=== PATIENT | female | born 1975 | race Caucasian/White ===

== ENCOUNTER 2024-12-17 01:04 | Day surgery (SDC) | payer BC, SELFPAY ==
[2024-12-07 14:11] VITALS: BMI 30.7
--- OUTSIDE RECORDS SUMMARY | 2024-12-17 01:06 | XMS_ITS | Clinical Summary ---
Author Organization [facility] Address [address] [place] [address] Care Team Providers Care Corner Former Name Role Phone Doris Huerta NP Primary Care Provider Allergies No known active allergies Medications sertraline (ZOLOFT) 100 mg tablet Take 1 tablet (100 mg total) by mouth daily Active clonazePAM (KlonoPIN) 1 mg tablet Take 1 tablet (1 mg total) by mouth 2 (two) times a day Active SUMAtriptan (IMITREX) 50 mg tabletIndicatio ns:Migraine Take 1 tablet (50 mg total) by mouth once May repeat dose once in 2 hours if no relief. Do not exceed 2 doses in 24 hours. Active amLODIPine (NORVASC) 2.5 mg tablet Take 1 tablet (2.5 mg total) by mouth daily Active carBAMazepine ER (CARBATROL) 300 mg 12 hr capsule Take 2 capsules (600 mg total) by mouth 2 (two) times a day Active Active Problems Problem Noted Date Diagnosed Date Alcohol withdrawal syndrome, uncomplicated 07/23 Hypertension 07/23/2023 Seizure disorder 07/23/2023 Migraine without status migrainosus, not intract able 07/23/2023 Medical History Medical History Date Comments Seizure disorder (HCC) 07/23/2023 Hypertension 07/23/2023 Migraine without status migrainosus, not intract able 07/23/2023 Family History Medical History Relation Name Comments Cerebral palsy Father Relation Name Status Comments Father Alive Social History Tobacco Use Types Packs/Day Years Used Date Smoking Tobacco: Former Cigarettes Personal Safety Answer Date Recorded Have you ever been in or are you currently in a harmful physical or emotional relationship or is someone making you feel afraid or unsafe? 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 Gender Identity Not on file Sexual Orientation Not on file Obstetrics History Last Filed Vital Signs Vital Sign Reading Time Taken Comments Blood Pressure 140/74 07/26/2023 11:06 AM CDT Pulse 74 07/26/2023 11:06 AM CDT Temperature 36.6 C (97.9 F) 07/26/2023 7:36 AM CDT Respiratory Rate 18 07/26/2023 7:36 AM CDT Oxygen Saturation 100% 07/26/2023 7:36 AM CDT Inhaled Oxygen Concentration - - Weight 73 kg (161 lb) 07/23/2023 12:04 PM CDT Height 167.6 cm (5' 6 ) 07/23/2023 12:04 PM CDT Body Mass Index 25.99 07/23/2023 12:04 PM CDT Plan of Treatment Health Maintenance Due Date Last Done Comments Cervical Cancer Screening 1973 Colon Cancer Screening-Colonoscopy 1973 Depression Screening 1973 Hepatitis C Screening 1973 Hepatitis B Screening 1991 Regular Well Visit/Exam 18-64 1991 Breast Cancer Screening-Mammogram 09/27/2015 09/27/2014, 09/27/2014 Zoster Vaccine (1 of 2) 2023 Influenza Vaccine (#1) 2024 DTaP/Tdap/Td Vaccine (2 - Td or Tdap) 12/21/2028 12/21/2018 Pneumococcal vaccine <65 Aged Out No longer eligible based on patient's age to complete this topic Insurance [address], [address] CHOICE [employer]OS [address], [address] [address] Advance Directives For more information, please contact: [phone] * Full Code (Latest Code Status on File) Date Activated Date Inactivated Comments 07/23/2023 11:58 AM 07/26/2023 5:10 PM Care Teams Corner Former Relationship Specialty Start Date End Date Doris Huerta NP [address] [place] [id number] PCP - General Nurse Practitioner 07/21/23
--- OUTSIDE RECORDS SUMMARY | 2024-12-17 01:06 | XMS_ITS | Referral Summary ---
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
--- OUTSIDE RECORDS SUMMARY | 2024-12-17 01:06 | XMS_ITS | Encounter Summary ---
Author Organization [facility] Address [facility] [place] [address] Care Team Providers Care Engineering Director Name Role Phone None, Provider Primary Care Provider Unavaila ble Encounter Details Date Type Department Care Team (Late st Contact Info) Description 08/08/2017 Abstract [facility] CONVERSION [address] [place], [place] [id number] , Generic Conversion, Social History Tobacco Use Types Packs/Day Years Used Date Smoking Tobacco: Never Assessed Comments Unknown Sex and Gender Information Value Date Recorded Sex Assigned at Not on file Legal Sex Female 1:58 PM CDT Gender Identity Not on file Sexual Orientation Not on file documented as of this encounter Plan of Treatment Not on file documented as of this encounter Visit Diagnoses Not on filedocumented in this encounter Care Teams Engineering Director Relationship Specialty Start Date End Date None, ProviderMD PCP - General 04/22/20 documented as of this encounter
--- OUTSIDE RECORDS SUMMARY | 2024-12-17 01:06 | XMS_ITS | Clinical Summary ---
Author Organization [facility] Address [address] [place] [id number] Care Team Providers Care Lease Administrator Name Role Phone Provider, None Primary Care Provider Unavailabl e Allergies No known active allergies Medications ibuprofen (MOTRIN) 800 MG TabletIndication s:Back strain, initial encounter Take 1 Tablet by mouth every 8 hours. 30 Tablet 3 04/21/2023 Active Active Problems No known active problems Social History Tobacco Use Types Packs/Day Years Used Date Smoking Tobacco: Never Smokeless Tobacco: Never Tobacco Cessation:Counseling Given: Not Answered Alcohol Use Standard Drinks/Week Comments Never 0 (1 standard drink = 0.6 oz pur e alcohol) Comments No Sex and Gender Information Value Date Recorded Sex Assigned at Not on file Legal Sex Female 2:13 PM CDT Gender Identity Not on file Sexual Orientation Not on file Last Filed Vital Signs Vital Sign Reading Time Taken Comments Blood Pressure 146/86 04/21/2023 2:23 PM CDT Pulse 85 04/21/2023 2:23 PM CDT Temperature 37 C (98.6 F) 04/21/2023 2:23 PM CDT Respiratory Rate 18 04/21/2023 2:23 PM CDT Oxygen Saturation - - Inhaled Oxygen Concentration - - Weight 74.8 kg (165 lb) 04/21/2023 2:23 PM CDT Height 168.9 cm (5' 6.5 ) 04/21/2023 2:23 PM CDT Body Mass Index 26.23 04/21/2023 2:23 PM CDT Plan of Treatment Health Maintenance Due Date Last Done Comments Hepatitis C Virus (HCV) Screening 1973 Hepatitis B Immunization (1 of 3 - 19+ 3-dose series) 1992 Pap Smear 1994 Cervical Cancer Screening (CCS) 2003 HPV/Cotest 2003 Mammogram 09/27/2015 09/27/2014 Colonoscopy 2018 Colorectal Cancer Screening 2018 Cologuard 2023 Immunochemical Fecal Occult Blood 2023 Pneumococcal Immunization (5 0+ years) (1 of 1 - PCV) 2023 Zoster Immunization (1 of 2) 2023 Influenza Immunization (#1) 2024 SARS-COV-2 Immunization (1 - 2023- season) 2024 Respiratory Syncytial Virus (RSV) Immunization (Adult) (1 - 1-dose 75+ series) 2048 Discussion re Starting/Frequ ency of Mammograms Discontinued 09/27/2014 DTaP/Tdap/Td Immunization Discontinued 12/21/2018 TdaP Immunization Completed 12/21/2018 Meningococcal Immunization (ACWY) Aged Out No longer eligible based on patient's age to complete this topic Pneumococcal Immunization Combined Aged Out No longer eligible based on patient's age to complete this topic Rotavirus Immunization Aged Out No lo nger eligible based on patient's age to complete this topic Insurance [facility] Care Teams Lease Administrator Relationship Specialty Start Date End Date Provider, None MA PCP - General 04/21/23
--- OUTSIDE RECORDS SUMMARY | 2024-12-17 01:06 | XMS_ITS | Clinical Summary ---
Author Organization [facility] Address [address] [place] [address] Care Team Providers Care Paring Machine Operator Name Role Phone None, Provider MD Primary Care Provider Unavaila ble Allergies Active Allergy Reactions Criticality Noted Date Comments Penicillins Unknown 04/22/2020 Medications carBAMazepine 200 MG tablet Take 400 mg by mouth 3 (three) times daily. 08/16/2015 Active clonazePAM 1 MG tablet Take 1 mg by mouth daily. 03/23/2020 Active sertraline 100 MG tablet Take 100 mg by mouth daily. 08/16/2015 Active traZODone 50 MG tablet Take 150 mg by mouth nightly as needed. 08/16/2015 Active HYDROcodone-addie taminophen 5-325 MG tabletIndicatio ns:Acute Pain < 3 Day Supply Take 1 tablet by mouth every 6 (six) hours as needed for Pain. Indications: Acute Pain < 3 Day Supply 6 tablet 04/22/2020 Active Immunizations Name Administration Dates Next Due Tdap (Adacel) 04/22/2020(Deferred: Patient/family declined - pt stated that she had a tetanus shot last year.) Family History Medical History Relation Comments Breast Cancer Neg Hx Social History Tobacco Use Types Packs/Day Years Used Date Smoking Tobacco: Some Days Smokeless Tobacco: Never Alcohol Use Standard Drinks/Week Comments Yes 0 (1 standard drink = 0.6 oz pur e alcohol) Comments No Sex and Gender Information Value Date Recorded Sex Assigned at Not on file Legal Sex Female 1:58 PM CDT Gender Identity Not on file Sexual Orientation Not on file Last Filed Vital Signs Vital Sign Reading Time Taken Comments Blood Pressure 118/67 04/22/2020 4:15 AM CDT Pulse 88 04/22/2020 3:45 AM CDT Temperature 37.1 C (98.7 F) 04/22/2020 1:15 AM CDT Respiratory Rate 21 04/22/2020 3:15 AM CDT Oxygen Saturation 97% 04/22/2020 3:45 AM CDT Inhaled Oxygen Concentration - - Weight 91.4 kg (201 lb 6.4 oz) 04/22/2020 1:15 A M CDT Height 167.6 cm (5' 6 ) 04/22/2020 1:15 AM CDT Body Mass Index 32.51 04/22/2020 1:15 AM CDT Plan of Treatment Health Maintenance Due Date Last Done Comments Colorectal Cancer Screening Colonoscopy (10 Years) 1973 Annual Physical 1976 Pneumococcal Vaccine: Pediatrics (0 to 5 Years) and At-Risk Patients (6 to 64 Years) (1 of 2 - PCV) 1979 Hepatitis C 1991 DTaP, Tdap and Td Vaccines ( 1 - Tdap) 1992 Hepatitis B Vaccines (1 of 3 - 19+ 3-dose series) 1992 Zoster Vaccines (1 of 2) 2023 COVID-19 Vaccine (1 - 2023-2 5 season) 2024 Influenza Adult (#1) 2024 Mammogram Screening 06/23/2026 06/23/2024, 09/27/2014 Meningococcal B Vaccine Aged Out No l onger eligible based on patient's age to complete this topic Meningococcal Vaccine Aged Out No daniel kim eligible based on patient's age to complete this topic RSV Immunizations Under 20 Months Aged Out No longer eligible b ased on patient's age to complete this topic Procedures Procedure Name Priority Date/Time Associated Diagnosis Comments MG SCREENING W MARIANO OC DIGI Routine 06/23/2024 11:18 AM CDT Encounter for screening mammogram for malignant neoplasm of breast from Last 3 Months or Most Recently Relevant to Health Maintenance Results * MG SCREENING W MARIANO OC DIGI (06/23/2024 11:18 AM CDT) Anatomical Region Laterality Modality Breast Bilateral Mammography 07/12/2024 5:02 PM CDT Impressions 07/12/2024 5:10 PM CDT ===== IMPRESSION: ===== 1. Stable mammographic appearance with no new findings to suggest malignancy in either breast. Assessment: ACR BI-RADS 1 - NEGATIVE Recommendation: 1:Routine Screening Bilateral Comments: Ordered By: DORIS HARMON Interpreted By: Kalani Singh, 07/12/2024 5:02 PM Narrative 07/12/2024 5:10 PM CDT [facility] [address] [place] [address] EXAMINATION: Digital bilateral screening mammogram with 3-D tomosynthesis EXAM DATE/TIME: 06/23/2024 10:53 AM REASON FOR EXAM: Screening COMPARISON: 09/27/2014 Technique: Digital screening mammography of both breasts was performed in addition to 3-D Tomosynthesis technique. This study was read with the assistance of a computer-aided detection system. Tissue density: There are scattered areas of fibroglandular density. Findings: There is no new focal asymmetry, dominant mass lesion, area of skin thickening, or cluster of suspicious appearing calcifications in either breast to suggest malignancy. Doris Harmon VICE PRESIDENT RESEARCH MAMMO Final Resul t from Last 3 Months or Most Recently Relevant to Health Maintenance Insurance [address] [place] [id number] Care Teams Paring Machine Operator Relationship Specialty Start Date End Date None, Provider, PCP - General 04/22/20
--- OUTSIDE RECORDS SUMMARY | 2024-12-17 01:06 | XMS_ITS | Clinical Summary ---
Author Organization [facility] Address [address] [facility] [place] [address] Care Team Providers Care Process Chemist Name Role Phone Jerome Simmons MD Primary Care Provider [phone] Allergies No known active allergies Medications OTHER OTC progesterone lotion twice a month Active sertraline (ZOLOFT) 100 mg tablet Take 1 Tablet (100 mg) by mouth daily. 30 Tablet 11 5 Active carBAMazepine (TEGRETOL) 200 mg tablet Take 2 Tablet (400 mg) by mouth 3 times daily. 180 Tablet 11 5 Active traZODone (DESYREL) 50 mg tablet Take 3 Tablet (150 mg) by mouth daily at bedtime. 90 Tablet 11 5 Active clonazePAM (KLONOPIN) 1 mg tablet TAKE ONE TABLET BY MOUTH TWO TIMES A DAY NEEDED 60 Tablet 0 6 Active Active Problems Problem Noted Date Diagnosed Date Seizure disorder 08/30/2014 Depression 08/30/2014 Obesity (BMI 30.0-34.9) 08/30/2014 History of hysterectomy 08/30/2014 Anxiety 08/30/2014 Family History Medical History Relation Name Comments Diabetes Brother Diabetes Daughter 1 Healthy Daughter 2 Depression Mother Heart Disease Paternal Grandfather Alzheimer's Disease Paternal Grandmother Heart Disease Paternal Uncle Relation Name Status Comments Brother Daughter 1 Daughter 2 Mother Paternal Grandfather Paternal Grandmother Paternal Uncle Social History Tobacco Use Types Packs/Day Years Used Date Smoking Tobacco: Former Cigarettes Q uit: 10/01/2013 Alcohol Use Standard Drinks/Week Comments Yes 0 (1 standard drink = 0.6 oz pur e alcohol) social Comments No Sex and Gender Information Value Date Recorded Sex Assigned at Not on file Legal Sex Female 5:27 PM A&P TECHNICIAN Gender Identity Not on file Sexual Orientation Not on file Occupation Industry Job Start Date Job End Date Not on file Not on file Not on file Not on file Last Filed Vital Signs Vital Sign Reading Time Taken Comments Blood Pressure 108/74 08/16/2015 8:19 AM A&P TECHNICIAN Pulse 81 08/16/2015 8:19 AM A&P TECHNICIAN Temperature - - Respiratory Rate - - Oxygen Saturation 96% 08/16/2015 8:19 AM A&P TECHNICIAN Inhaled Oxygen Concentration - - Weight 89.8 kg (198 lb) 08/16/2015 8:19 AM A&P TECHNICIAN Height 170.2 cm (5' 7 ) 08/16/2015 8:19 AM A&P TECHNICIAN Body Mass Index 31.01 08/16/2015 8:19 AM A&P TECHNICIAN Plan of Treatment Health Maintenance Due Date Last Done Comments DTAP/TDAP/TD VACCINES (1 - Tdap) 1992 HEPATITIS B VACCINES (1 of 3 - 19+ 3-dose series) 1992 BREAST CANCER SCREENING 09/27/2015 09/27/2014 CERVICAL CANCER SCREENING 10/13/20152012 (Previously completed) COLORECTAL SCREENING 2018 Colorectal Cancer Screening 2018 FIT-DNA Q 3 years 2018 FIT/FOBT Q 1 year 2018 Flex Sig/CT Colonography Q 5 years 2018 ZOSTER VACCINE (1 of 2) 2023 INFLUENZA VACCINE (#1) 2024 Procedures Procedure Name Priority Date/Time Associated Diagnosis Comments MAMMO SCREEN BILAT W OR WO CAD Routine 09/27/2014 12:00 PM A&P TECHNICIAN Screening for breast cancer from Last 3 Months or Most Recently Relevant to Health Maintenance Results * MAMMO DIGITAL SCREEN BILAT (09/27/2014 12:00 PM A&P TECHNICIAN) Anatomical Region Laterality Modality Breast Bilateral Mammography Narrative 09/27/2014 4:06 PM A&P TECHNICIAN Bilateral digital screening mammogram with computer assisted diagnosis History: Annual screening exam. Findings: A bilateral screening mammogram was performed. This is the patients' baseline study. The breast parenchyma is heterogeneously dense which can obscure small masses. No masses, suspicious calcifications, or areas of asymmetry or distortion are identified. CAD was utilized. Impression: Negative screening mammogram. Recommendation: Routine annual follow-up Overall Assessment: Birads Category 1: Negative Procedure Note Michelle Brooke MD - 09/27/2014 Bilateral digital screening mammogram with computer assisted diagnosis History: Annual screening exam. Findings: A bilateral screening mammogram was performed. This is thepatients' baseline study. The breast parenchyma is heterogeneously densewhich can obscure small masses. No masses, suspicious calcifications, orareas of asymmetry or distortion are identified. CAD was utilized. Impression: Negative screening mammogram. Recommendation: Routine annual follow-up Overall Assessment: Birads Category 1: Negative Jerome Simmons MD MAMMO ORDERABLES Final Result from Last 3 Months or Most Recently Relevant to Health Maintenance Care Teams Process Chemist Relationship Specialty Start Date End Date Jerome Simmons MD [address] [place] [id number] PCP - General Internal Medicine 08/17/14
[2024-12-17 07:17] VITALS: BP 125/76; PULSE 62; RESP 18; TEMP 36.6; O2SAT 98
[2024-12-17 07:19] VITALS: BMI 31.3
[2024-12-17] MEDS: LACTATED RINGERS 1,000 ML 150 ML IV CONT (07:28)
--- NOTE | 2024-12-17 07:59 | PM.HPGS ---
History of Present Illness History of Present Illness Consent: Risks, benefits, and alternatives have been discussed and questions answered. Patient agrees to proceed with procedure. Chief complaint: screening malignant neoplasm of colon Narrative: Ines Brown is a 49 year old female here for first screening colonoscopy Review of Systems Review of Systems: All systems reviewed & are unremarkable except as noted in HPI and below PMFSH Past Medical History Medical History (Updated 12/17/24 @ 08:00 by Paulino Rcio MD) Colon cancer screening Dyslipidemia Cigarette nicotine dependence Vitamin D deficiency Epilepsy Migraines Vitamin B12 deficiency Pre-diabetes Depression Anxiety Surgical History Surgical History History of hysterectomy Social History Social History Social History: 05/24/24 Patient very confident in filling out medical forms. Patient has rcvd assistance in the past 12 months: job search or training. 07/14/24 patient declined SDOH Years smoked: 20 Smoking status: Current every day smoker Tobacco type: cigarettes and e-cigarettes/vaping Alcohol intake: never Alcohol use details: social Substance use: never Substance use type: does not use Do You Feel Safe in your Home?: Yes Lack of Transportation: No Lack of Food: Never True Current Housing: I Have Housing Concerned About Future Housing: No Difficulty Paying Gas/Electric Bills: No Difficulty Paying for Meds: No Currently Unemployed: No Education: High School Diploma/GED Difficulty w/ Childcare or Family Care: No Living arrangements: with family Occupation/Education: occupation Gender identity (if verbalized by the patient): Female Spiritual care concerns: No Meds Home Medications and Allergies Home Medications ?Medication ?Instructions ?Recorded ?Confirmed ?Type mecobalamin (vitamin B12) 5,000 5,000 mcg PO DAILY 06/21/22 12/17/24 History mcg disintegrating tablet sumatriptan succinate 100 mg See Rx Instructions PO .COMPLEX 06/21/22 12/17/24 Rx tablet (Imitrex) #14 tabs trazodone 50 mg tablet 50 mg PO QHS PRN sleep 06/21/22 12/17/24 History cetirizine 10 mg disintegrating 10 mg PO DAILY PRN allergy symptoms 07/29/23 12/17/24 History tablet biotin 1 mg capsule 1 mg PO DAILY 02/03/24 12/17/24 History carbamazepine 300 mg 600 mg (2 x 300 mg) PO BID #360 06/04/24 12/17/24 Rx capsule,extended release [id number] caps sertraline 100 mg tablet 150 mg (1.5 x 100 mg) PO DAILY 08/16/24 12/17/24 Rx #135 tabs amlodipine 5 mg tablet 5 mg PO DAILY #90 tabs 11/08/24 12/17/24 Rx pseudoephedrine HCl 30 mg tablet 30 mg PO Q4H PRN nasal congestion 12/07/24 12/17/24 History (Sudafed) Allergies Allergy/AdvReac Type Severity Reaction Status Date / Time aripiprazole (From Abilify) AdvReac Severe Agitated Verified 12/07/24 14:06 bupropion (From Wellbutrin) AdvReac Severe altered Verified 12/07/24 14:06 mental status lisinopril AdvReac Intermediate leg cramps Verified 12/07/24 14:06 oseltamivir (From Tamiflu) AdvReac Mild Abdominal Verified 12/07/24 14:06 Pain Vital Signs Vital Signs - 24 hr 12/17/24 07:17 Temperature 98 F Pulse Rate 62 Respiratory Rate 18 Blood Pressure 125/76 Pulse Oximetry 98 Oxygen Delivery Room Air Exam Const: General: comfortable and no acute distress HENMT: Face/Nose/Sinus: Normal nares present Eyes: General: appearance normal, both eyes and all related structures Neck: Neck: no JVD Resp: Auscultation: clear to auscultation bilaterally Cardio: Rate: regular rate Rhythm: regular rhythm GI: Inspection: non-distended GI Palp: Yes Soft to palpation Skin: General skin exam: normal color Neuro: General: gait normal Speech: normal speech Extrem: General: normal to inspection Psych: Mental Status: mental status grossly normal Assessment and Plan Assessment and plan (1) Colon cancer screening: Code(s): Z12.11 - Encounter for screening for malignant neoplasm of colon Status: Acute Assessment and Plan: colonoscopy
--- NOTE | 2024-12-17 08:06 | WPDANESEPPF ---
Anes - Initial Pre Proc Eval Procedure: Operation Date: 12/17/24 08:30 Proposed Procedures p Screening Colonoscopy - Paulino Rico MD Date/Time: 12/17/24 08:06 Surgeon: Paulino Rico MD Pre Op Diagnosis: screening malignant neoplasm of colon Patient Data Age: 49 Gender: F Height: 1.68 m Weight: 88 kg Last Vital Signs Temp 98 F 12/17/24 07:17 Pulse 62 12/17/24 07:17 Resp 18 12/17/24 07:17 BP 125/76 12/17/24 07:17 Pulse Ox 98 12/17/24 07:17 O2 Del Method Room Air 12/17/24 07:17 Allergies Allergy/AdvReac Type Severity Reaction Status Date / Time aripiprazole (From Abilify) AdvReac Severe Agitated Verified 12/07/24 14:06 bupropion (From Wellbutrin) AdvReac Severe altered Verified 12/07/24 14:06 mental status lisinopril AdvReac Intermediate leg cramps Verified 12/07/24 14:06 oseltamivir (From Tamiflu) AdvReac Mild Abdominal Verified 12/07/24 14:06 Pain Home Medications ?Medication ?Instructions ?Recorded ?Confirmed ?Type mecobalamin (vitamin B12) 5,000 5,000 mcg PO DAILY 06/21/22 12/17/24 History mcg disintegrating tablet sumatriptan succinate 100 mg See Rx Instructions PO .COMPLEX 06/21/22 12/17/24 Rx tablet (Imitrex) #14 tabs trazodone 50 mg tablet 50 mg PO QHS PRN sleep 06/21/22 12/17/24 History cetirizine 10 mg disintegrating 10 mg PO DAILY PRN allergy symptoms 07/29/23 12/17/24 History tablet biotin 1 mg capsule 1 mg PO DAILY 02/03/24 12/17/24 History carbamazepine 300 mg 600 mg (2 x 300 mg) PO BID #360 06/04/24 12/17/24 Rx capsule,extended release [id number] caps sertraline 100 mg tablet 150 mg (1.5 x 100 mg) PO DAILY 08/16/24 12/17/24 Rx #135 tabs amlodipine 5 mg tablet 5 mg PO DAILY #90 tabs 11/08/24 12/17/24 Rx pseudoephedrine HCl 30 mg tablet 30 mg PO Q4H PRN nasal congestion 12/07/24 12/17/24 History (Sudafed) Patient hx anesthesia problems: none Family hx anesthesia problems: none Results Review: All pre-operative results and documents have been reviewed as part of the pre-operative evaluation. [facility] Past Medical History Medical History Colon cancer screening Dyslipidemia Cigarette nicotine dependence Vitamin D deficiency Epilepsy Migraines Vitamin B12 deficiency Pre-diabetes Depression Anxiety Surgical History Surgical History History of hysterectomy Social History Social History Social History: 05/24/24 Patient very confident in filling out medical forms. Patient has rcvd assistance in the past 12 months: job search or training. 07/14/24 patient declined SDOH Years smoked: 20 Smoking status: Current every day smoker Tobacco type: cigarettes and e-cigarettes/vaping Alcohol intake: never Alcohol use details: social Substance use: never Substance use type: does not use Do You Feel Safe in your Home?: Yes Lack of Transportation: No Lack of Food: Never True Current Housing: I Have Housing Concerned About Future Housing: No Difficulty Paying Gas/Electric Bills: No Difficulty Paying for Meds: No Currently Unemployed: No Education: High School Diploma/GED Difficulty w/ Childcare or Family Care: No Living arrangements: with family Occupation/Education: occupation Gender identity (if verbalized by the patient): Female Spiritual care concerns: No Anes - Eval Final PreProcedure Day of Procedure 12/17/24 08:06 Patient weight: overweight Lungs: normal air movement Airway: Mallampati scale class II Neurological: alert and oriented Last oral intake: >/= 8 hours ASA classification: III Emergent: no Anesthetic plan: proceed Anesthesia type and monitoring: general GIVS and standard monitoring Results Review: All pre-operative results and documents have been reviewed as part of the pre-operative evaluation. HTN, hx of seizure disorder, no seizure in approx 20 years. Pt vapes daily, and did this am. Informed Consent: The patient's anesthetic plan and its attendant risks and benefits were discussed with the patient/family/POA. Questions were solicited and answers provided to the satisfaction of the patient/family/POA.
[2024-12-17 08:20] VITALS: BP 94/60; PULSE 72; RESP 22; O2SAT 99
[2024-12-17 08:30] VITALS: BP 120/67; PULSE 63; RESP 13; O2SAT 100
[2024-12-17 08:40] VITALS: BP 122/81; PULSE 55; RESP 13; O2SAT 100
== END 2024-12-17 08:45 | disposition home or self-care (01) ==
PROVIDERS: PCP Nurse Practitioner Family; Referring Provider Nurse Practitioner Family; Visit Provider Internal Medicine Gastroenterology
PROC: 0DJD8ZZ Inspection of Lower Intestinal Tract, Via Natural or Artificial Opening Endoscopic (ICD-10-PCS; CPT 45378; principal; 2024-12-17 08:30)
DX: Z12.11 Encounter for screening for malignant neoplasm of colon (principal); K57.30 Diverticulosis of large intestine without perforation or abscess without bleeding; F17.210 Nicotine dependence, cigarettes, uncomplicated; F17.290 Nicotine dependence, other tobacco product, uncomplicated
CPT/HCPCS: 45378; J2704; J7120